=== PATIENT | female | born 2000 | race Two or more races ===

== ENCOUNTER 2018-07-06 03:09 | Emergency (ER) | payer BC ==
[~2018-07-06] VITALS: Ht 154.9 cm; Wt 77.1 kg
[2018-07-06 03:35] LABS: BILIRUBIN,URINE NEGATIVE (NEG); CLARITY,URINE CLEAR; COLOR,URINE YELLOW; NITRITE,URINE NEGATIVE (NEG); PROTEIN,URINE NEGATIVE (NEG-TRACE); UROBILINOGEN,URINE 0.2 mg/dL (0.2 mg/dL)
[2018-07-06 03:39] LABS: BACTERIA,URINE 0 /HPF (0-FEW); RBC,URINE 0 /HPF (0-2); SQUAMOUS EPITHELIAL CELL,UR FEW /LPF; WBC,URINE 0 /HPF (0-4)
--- NOTE | 2018-07-06 03:40 | PHYS DOC ---
Adult General Chief Complaint Chief Complaint: ABDOMINAL PAIN HPI HPI Patient is a 17 year old female who presents with lower abdominal pain. She has been having symptoms over the last 4 days. She was evaluated at an urgent care 4 days earlier and states she had a urinalysis which did not reveal infection. Since that time, her pain is waxed and waned but it didn't become severe overnight this evening. Pain is located over the lower portion of her abdomen. She has no vaginal discharge that is irregular. No irregular bleeding. She does have an IUD in place and does not have regular menses. No fever or chills. Denies constipation or diarrhea. She has had some intermittent nausea but no vomiting. Patient has no prior history of similar symptoms. She has no surgical history. Review of Systems Review of Systems Constitutional: Denies fever or chills Eyes: Denies change in visual acuity HENT: Denies nasal congestion or sore throat Respiratory: Denies cough or shortness of breath Cardiovascular: No additional information not addressed in HPI GI: as documented above : Denies dysuria or hematuria Musculoskeletal: Denies back pain or joint pain Integument: Denies rash All other systems were reviewed and found to be within normal limits, except as documented in this note. Current Medications Current Medications Current Medications Medications (Trade) Dose Ordered Sig/Andrea Start Time Stop Time Status Last Admin Dose Admin Azithromycin (Zithromax) 1,000 mg 1X ONCE 07/06/18 06:00 07/06/18 06:01 DC Ceftriaxone Sodium (Rocephin Im) 250 mg 1X ONCE 07/06/18 06:00 07/06/18 06:01 DC Info (CONTRAST GIVEN -- Rx MONITORING) 1 each PRN DAILY PRN 07/06/18 04:15 07/08/18 04:14 Iohexol (Omnipaque 300 Mg/ml) 75 ml 1X ONCE 07/06/18 04:15 07/06/18 04:16 DC 07/06/18 05:00 75 ML Allergies Allergies Allergies Coded Allergies Type Severity Reaction Last Updated Verified No Known Drug Allergies 07/06/18 No Physical Exam Physical Exam Constitutional: Well developed, well nourished, no acute distress, non-toxic appearance HENT: Normocephalic, atraumatic, bilateral external ears normal, oropharynx moist Eyes: PERRLA, EOMI, conjunctiva normal, no discharge Neck: Normal range of motion, no tenderness Cardiovascular:Heart rate regular rhythm, no murmur Lungs & Thorax: Bilateral breath sounds clear to auscultation Abdomen: Bowel sounds normal, soft, subjective tenderness over pelvic area. No guarding or rebound Skin: Warm, dry, no erythema, no rash Extremities: Normal exam Neurologic: Alert and oriented X 3 Psychologic: Affect normal Current Patient Data Vital Signs Vital Signs Date Time Temp Pulse Resp B/P (MAP) Pulse Ox O2 Delivery O2 Flow Rate FiO2 07/06/18 03:34 98.0 87 18 154/72 (99) 100 Room Air 98.0 Lab Values Laboratory Tests Test 07/06/18 03:25 07/06/18 03:28 07/06/18 04:05 Urine Collection Type Unknown Urine Color Yellow Urine Clarity Clear Urine pH 7.0 Urine Specific [place] 1.010 Urine Protein Negative mg/dL (NEG-TRACE) Urine Glucose (UA) Negative mg/dL (NEG) Urine Ketones (Stick) Negative mg/dL (NEG) Urine Blood Negative (NEG) Urine Nitrite Negative (NEG) Urine Bilirubin Negative (NEG) Urine Urobilinogen Dipstick 0.2 mg/dL (0.2 mg/dL) Urine Leukocyte Esterase Negative (NEG) Urine RBC 0 /HPF (0-2) Urine WBC 0 /HPF (0-4) Urine Squamous Epithelial Cells Few /LPF Urine Bacteria 0 /HPF (0-FEW) Urine Mucus Slight /LPF POC Urine HCG, Qualitative Hcg negative (Negative) White Blood Count 7.5 x10^3/uL (4.0-11.0) Red Blood Count 4.73 x10^6/uL (3.50-5.40) Hemoglobin 14.2 g/dL (12.0-15.5) Hematocrit 42.5 % (36.0-47.0) Mean Corpuscular Volume 90 fL (79-100) Mean Corpuscular Hemoglobin 30 pg (25-35) Mean Corpuscular Hemoglobin Concent 33 g/dL (31-37) Red Cell Distribution Width 13.1 % (11.5-14.5) Platelet Count 281 x10^3/uL (140-400) Neutrophils (%) (Auto) 46 % (31-73) Lymphocytes (%) (Auto) 43 % (24-48) Monocytes (%) (Auto) 9 % (0-9) Eosinophils (%) (Auto) 2 % (0-3) Basophils (%) (Auto) 1 % (0-3) Neutrophils # (Auto) 3.4 x10^3uL (1.8-7.7) Lymphocytes # (Auto) 3.2 x10^3/uL (1.0-4.8) Monocytes # (Auto) 0.7 x10^3/uL (0.0-1.1) Eosinophils # (Auto) 0.1 x10^3/uL (0.0-0.7) Basophils # (Auto) 0.0 x10^3/uL (0.0-0.2) Sodium Level 143 mmol/L (136-145) Potassium Level 4.1 mmol/L (3.5-5.1) Chloride Level 106 mmol/L (98-107) Carbon Dioxide Level 28 mmol/L (21-32) Anion Gap 9 (6-14) Blood Urea Nitrogen 6 mg/dL (7-20) L Creatinine 0.6 mg/dL (0.6-1.0) Estimated GFR (Cockcroft-Gault) 128.8 Glucose Level 104 mg/dL (70-99) H Calcium Level 9.6 mg/dL (8.5-10.1) Total Bilirubin 0.3 mg/dL (0.2-1.0) Direct Bilirubin 0.1 mg/dL (0.0-0.2) Aspartate Amino Transferase (AST) 25 U/L (15-37) Alanine Aminotransferase (ALT) 28 U/L (14-59) Alkaline Phosphatase 103 U/L (46-116) Total Protein 7.7 g/dL (6.4-8.2) Albumin 3.8 g/dL (3.4-5.0) Lipase 164 U/L (73-393) Laboratory Tests 07/06/18 04:05 Laboratory Tests 07/06/18 04:05 Microbiology 07/06/18 Wet Prep - Final, Complete EKG EKG [] Radiology/Procedures Radiology/Procedures FINDINGS: Minimal bibasilar lung atelectasis. No evidence of free air identified in the abdomen. The visualized liver, spleen, adrenals grossly appears unremarkable. The gallbladder is mildly distended. The stomach is mildly distended. The visualized pancreas grossly appears unremarkable. Mild distention of the small bowel loops in the left upper quadrant of the abdomen with minimal surrounding fat stranding, best visualized on series 2 image 35. The appendix is normal. Feces and gas noted in the colon. Small amount of free fluid identified in the pelvis. Urinary bladder is mildly distended. Cystic structures identified in the bilateral ovaries the largest measuring 2.7 cm in the left ovary. No evidence of lytic bony destructive lesion. IMPRESSION: 1. Mild distended small bowel loops in the left upper quadrant of the abdomen with surrounding mild inflammatory fat stranding likely enteritis. 2. Cystic structures identified in the right and left ovaries probably cysts or follicles the largest measuring 2.7 cm. Follow-up ultrasound pelvis can be considered. Course & Med Decision Making Course & Med Decision Making Pertinent Labs and Imaging studies reviewed. (See chart for details) 03:30: Patient is seen and examined. No acute distress. UA/UCG ordered. Pelvic exam is completed. Exam was accompanied by female registered nurse. Gonorrhea and chlamydia testing are sent to lab. 05:45: Patient did have some tenderness with cervical motion as well as in the bilateral adnexa. She is treated in the ER empirically. CT scan is documented above and with findings of ovarian cysts as well as some enteritis. Patient is discharged home. She is given some Zofran for nausea. Advised to come back to the ER for any new or worsening symptoms. Advised to refrain from sexual intercourse pending final results of her swabs. She is agreeable to this plan of care. She is accompanied by a friend who is driving her home. All of her questions are answered prior to discharge home. Dragon Disclaimer Dragon Disclaimer This electronic medical record was generated, in whole or in part, using a voice recognition dictation system. Departure Departure Disposition: 01 HOME, SELF-CARE Condition: GOOD Referrals: UNKNOWN PCP NAME (PCP) Scripts Ondansetron Hcl (ZOFRAN) 4 Mg Tablet 4 MG PO PRN TID PRN for NAUSEA, #10 nausea/vomiting Prov: LOBITO BELLA DO 07/06/18 LOBITO BELLA DO Jul 06, 2018 03:40
[2018-07-06] MEDS ORDERED: IOHEXOL 300 MG/ML 100ML VIAL. IV ONE (04:15)
[2018-07-06] MEDS ORDERED: CONTRAST GIVEN. MC PRN (04:15)
[2018-07-06 04:17] LABS: BASO % 1 % (0-3); EOS # 0.1 x10^3/uL (0.0-0.7); EOS % 2 % (0-3); HEMATOCRIT 42.5 % (36.0-47.0); HEMOGLOBIN 14.2 g/dL (12.0-15.5); LYMPH # 3.2 x10^3/uL (1.0-4.8); LYMPH % 43 % (24-48); MEAN CORPUSCULAR HEMOGLOBIN 30 pg (25-35); MEAN CORPUSCULAR HGB CONC 33 g/dL (31-37); MEAN CORPUSCULAR VOLUME 90 fL (79-100); MONO # 0.7 x10^3/uL (0.0-1.1); MONO % 9 % (0-9); NEUT # 3.4 x10^3uL (1.8-7.7); NEUT % 46 % (31-73); PLATELET COUNT 281 x10^3/uL (140-400); RED BLOOD COUNT 4.73 x10^6/uL (3.50-5.40); RED CELL DISTRIBUTION WIDTH 13.1 % (11.5-14.5); WHITE BLOOD COUNT 7.5 x10^3/uL (4.0-11.0)
[2018-07-06 04:25] LABS: CALCIUM 9.6 mg/dL (8.5-10.1); CREATININE 0.6 mg/dL (0.6-1.0); GFR 128.8; POTASSIUM 4.1 mmol/L (3.5-5.1)
[2018-07-06 04:31] LABS: ALBUMIN 3.8 g/dL (3.4-5.0); DIRECT BILIRUBIN 0.1 mg/dL (0.0-0.2); TOTAL BILIRUBIN 0.3 mg/dL (0.2-1.0); TOTAL PROTEIN 7.7 g/dL (6.4-8.2)
[2018-07-06 04:45] VITALS: BP 124/59
--- NOTE | 2018-07-06 05:30 | RAD ---
Examination: CT of the abdomen pelvis with IV contrast HISTORY: Abdominal pain COMPARISON: None available TECHNIQUE: Axial CT images of the abdomen pelvis were performed with IV contrast. Coronal and sagittal reformats are performed Exposure: One or more of the following individualized dose reduction techniques were utilized for this examination: 1. Automated exposure control 2. Adjustment of the mA and/or kV according to patient size 3. Use of iterative reconstruction technique FINDINGS: Minimal bibasilar lung atelectasis. No evidence of free air identified in the abdomen. The visualized liver, spleen, adrenals grossly appears unremarkable. The gallbladder is mildly distended. The stomach is mildly distended. The visualized pancreas grossly appears unremarkable. Mild distention of the small bowel loops in the left upper quadrant of the abdomen with minimal surrounding fat stranding, best visualized on series 2 image 35. The appendix is normal. Feces and gas noted in the colon. Small amount of free fluid identified in the pelvis. Urinary bladder is mildly distended. Cystic structures identified in the bilateral ovaries the largest measuring 2.7 cm in the left ovary. No evidence of lytic bony destructive lesion. IMPRESSION: 1. Mild distended small bowel loops in the left upper quadrant of the abdomen with surrounding mild inflammatory fat stranding likely enteritis. 2. Cystic structures identified in the right and left ovaries probably cysts or follicles the largest measuring 2.7 cm. Follow-up ultrasound pelvis can be considered. Electronically signed by: Mack Zarate MD (07/06/2018 5:25 AM) [facility]
[2018-07-06] MEDS ORDERED: ONDA4TAB7 PO (05:46)
[2018-07-06] MEDS ORDERED: cefTRIAXone IM 250 MG VIAL IM ONE (06:00)
[2018-07-06] MEDS ORDERED: AZITHROMYCIN 250 MG TABLET. PO ONE (06:00)
[2018-07-07 12:21] LABS: GC PROBE Negative (Negative)
== END 2018-07-06 06:50 | disposition home or self-care (01) ==
LOC: ER 03:09
DX: K52.89 Other specified noninfective gastroenteritis and colitis (principal); J98.11 Atelectasis; K82.8 Other specified diseases of gallbladder
CPT/HCPCS: 36415; 74177; 80048; 80076; 81001; 81025; 83690; 85025; 87491; 87591; 96372; 99284; J0696; Q0111; Q0144; Q9967